=== PATIENT | male | born 1955 | race Caucasian/White ===

== ENCOUNTER → 2025-04-05 | Outpatient (REF) | payer MEDICARE | LOC: MRI 10:25 | PROVIDERS: ATTEND Podiatrist Foot Surgery | DX: S86.011A Strain of right Achilles tendon, initial encounter (principal) ==

== ENCOUNTER 2025-06-21 14:05 | Emergency (ER) | payer MEDICARE ==
[~2025-06-21] VITALS: Ht 188 cm; Wt 97.5 kg
[2025-06-21 14:14] VITALS: TEMP 98.7
[2025-06-21 16:47] LABS: BASOPHILS % 0.9 % (0.0-1.0); EOSINOPHILS % 3.8 % (0.0-6.0); LYMPHOCYTES % 40.5 % (18.0-39.1); MONOCYTES % 6.3 % (4.4-11.3); NEUTROPHILS % 48.3 % (38.7-80.0); RED CELL DISTRIBUTION WIDTH 12.4 % (11.7-14.4)
[2025-06-21 17:01] LABS: EST GLOMERULAR FILTRATION RATE 79.0 ML/MIN (>=60)
[2025-06-21] MEDS: Morphine 4mg INJECTION 4 MG/ML INJ IV ONE (17:10)
[2025-06-21 17:13] LABS: INR 0.85
[2025-06-21] MEDS ORDERED: HEPARIN SOD/DEXTROSE 5% 25000 UNIT/250 ML BAG IV SCH ×3 (17:15→18:00)
[2025-06-21] MEDS ORDERED: HEPARIN SOD (PORCINE) 5,000 UNIT/ML VIAL IV ONE (17:45)
[2025-06-21 18:02] VITALS: PULSE 66; RESP 13; O2SAT 99
[2025-06-21] MEDS: HEPARIN SOD/DEXTROSE 5% 25000 UNIT/250 ML BAG IV SCH (18:08)
[2025-06-21] MEDS: NICOTINE 14 MG/EA PATCH TOP STA (18:38)
== END 2025-06-21 18:44 | disposition other institution (70) ==
LOC: ER 15:46
DX: M79.674 Pain in right toe(s) (principal); I77.1 Stricture of artery; I10 Essential (primary) hypertension; F17.210 Nicotine dependence, cigarettes, uncomplicated
CPT/HCPCS: 36415; 80053; 85025; 85610; 85730; 93925; 93970; 99284; J2270; J1644